=== PATIENT | male | born 1980 | race Caucasian/White ===

== ENCOUNTER 2016-11-10 19:30 | Emergency (ER) | payer OTHER ==
[~2016-11-10 19:30] MED LIST: CANASA1SUP PR; LEVBID PO; PROBIOTICS PO
[2016-11-10 19:54] LABS: ASCORBIC ACID (UR NOT ORDER) 40 (NEG); BILIRUBIN, URINE NEGATIVE (NEG); ER URINALYSIS TAT 0 Hrs 09 Mins; KETONE, URINE 80 MG/DL (NEG); LEUKOCYTE ESTERASE(NOT OR NEG (NEG); NITRITE (URINE) NEG (NEG); WBC (NOT ORDERED) (RFLEX) < 1 (0-5)
[2016-11-10 19:55] LABS: BASOPHILS 0.1 %; BASOPHILS ABSOLUTE 0.01 10/3/uL (0.0-0.16); EOSINOPHILS 1.9 %; EOSINOPHILS ABSOLUTE 0.18 10/3/uL (0.0-0.53); HEMATOCRIT 41.9 % (40.0-51.0); HEMOGLOBIN 14.6 g/dL (13.6-17.8); IMMATURE GRANULOCYTES 0.1 %; IMMATURE GRANULOCYTES ABSOLUTE 0.01 10/3/uL (0.0-0.11); LYMPHOCYTES 19.5 %; LYMPHOCYTES ABSOLUTE 1.82 10/3/uL (0.67-4.30); MEAN CORPUS HGB CONC 34.8 g/dL (32.0-36.0); MEAN CORPUSCULAR HEMOGLOB 30.7 pg (26.0-34.0); MEAN PLATELET VOLUME 8.8 fL (9.2-13.0); MONOCYTES 11.6 %; MONOCYTES ABSOLUTE 1.08 10/3/uL (0.21-1.20); NEUTROPHILS 66.8 %; NEUTROPHILS ABSOLUTE 6.25 10/3/uL (2.02-8.40); PLATELET COUNT 299 10/3/uL (150-400); RED CELL COUNT 4.75 10/6/uL (4.7-6.1)
[2016-11-10 19:56] LABS: ER CBC TAT 0 Hrs 11 Mins; MANUAL DIFF NO %; MEAN CORPUSCULAR VOLUME 88.2 fL (80-100); WHITE BLOOD CELLS 9.4 10/3/uL (4.5-10.5)
[2016-11-10 20:14] LABS: ALBUMIN 3.6 G/DL (3.5-5.0); ALKALINE PHOSPHATASE 70 U/L (45-117); CHLORIDE, SERUM 101 MMOL/L (96-112); CO2 (CARBON DIOXIDE) 33 MMOL/L (24-34); CREATININE 0.84 MG/DL (0.70-1.30); GFR AFRICAN AMERICAN 130 ML/MIN (>=60); GFR NON AFRICAN AMERICAN 112 ML/MIN (>=60); GLOBULIN 3.6 G/DL (2.5-4.1); GLUCOSE, SERUM 97 MG/DL (60-99); POTASSIUM, SERUM 3.9 MMOL/L (3.5-5.3); SGOT(AST) 9 U/L (5-40); SGPT(ALT) 18 U/L (5-65); SODIUM, SERUM 138 MMOL/L (135-148); TOTAL BILIRUBIN 0.6 MG/DL (0-1.2); TOTAL PROTEIN 7.2 G/DL (6.0-8.5)
[2016-11-10 20:17] LABS: BUN (BLOOD UREA NITROGEN) 6 MG/DL (6-23)
== END 2016-11-11 00:36 | disposition left against medical advice (07) ==
LOC: ER 19:30
PROVIDERS: Hospitalist
DX: Z53.21 Procedure and treatment not carried out due to patient leaving prior to being seen by health care provider (principal); K51.90 Ulcerative colitis, unspecified, without complications
CPT/HCPCS: 80053; 81001; 83690; 85025